=== PATIENT | female | born 1945 | race Caucasian/White ===

== ENCOUNTER → 2017-07-30 | Outpatient (CLI) | payer MEDICARE ==
--- NOTE | 2017-07-31 12:38 | RAD ---
DATE: 07/30/2017 EXAM: MAMMO TK SCREENING BILATERAL HISTORY: Routine screening COMPARISON: 07/18/2016 The breast parenchyma is primarily fatty replaced. Breast parenchyma level density A. FINDINGS: 2-D and 3-D tomosynthesis imaging was performed in CC and MLO projections. The breasts are predominantly fatty in nature with a small amount of residual fibroglandular tissue in the retroareolar regions. Several small oil cysts, some of which demonstrate rim-like calcification, are noted medially in the right breast. Several small smooth right breast nodules are unchanged. No suspicious breast densities have developed. Benign type calcifications are present. IMPRESSION: There is no mammographic evidence of malignancy in either breast. BI-RADS CATEGORY: 2 BENIGN FINDING(S) RECOMMENDED FOLLOW-UP: 12M 12 MONTH FOLLOW-UP PQRS compliance statement: Patient information was entered into a reminder system with a target due date for the next mammogram. Mammography is a sensitive method for finding small breast cancers, but it does not detect them all and is not a substitute for careful clinical examination. A negative mammogram does not negate a clinically suspicious finding and should not result in delay in biopsying a clinically suspicious abnormality. "Our facility is accredited by the [employer] Mammography [employer]."
== END | disposition home or self-care (01) ==
LOC: KCIC MAMMO 08:42
PROVIDERS: ATTEND Internal Medicine
DX: Z12.31 Encounter for screening mammogram for malignant neoplasm of breast (principal)
CPT/HCPCS: 77063; G0202; 77067

== ENCOUNTER → 2018-08-20 | Outpatient (CLI) | payer MEDICARE ==
--- NOTE | 2018-08-20 14:59 | KCIC ---
Bilateral digital screening mammograms with 3-D tomosynthesis: Reason for examination: Routine screening. Comparison is made to previous studies dated 07/30/2017 and 07/18/2016. Bilateral mammograms in CC and oblique projections were obtained with 2-D imaging and 3-D tomosynthesis imaging on a Siemens Inspiration unit and reviewed on the workstation. Interpretation was made with the benefit of CAD. The skin and nipples show no abnormalities. No abnormal axillary lymph nodes are seen. The breast parenchyma shows scattered fatty and fibroglandular density. (Breast density: Category B.) There continues to be some nodularity in the retroareolar 3:00 position of the left breast which is unchanged. There is some fat necrosis seen medially in the right breast. There are no new dominant masses, suspicious calcifications or architectural distortion. Benign calcifications are present. Impression: No evidence of malignancy. Recommend routine screening. BI-RAD Category 2: Benign. "Our facility is accredited by the [employer] Mammography [employer]." This patient's information has been entered into a reminder system for the patient to be notified with the results of her examination and a target date for the next mammogram. Electronically signed by: Eli Francis MD (08/20/2018 2:55 PM) [id number]
== END | disposition home or self-care (01) ==
LOC: KCIC MAMMO 10:44
PROVIDERS: ATTEND Internal Medicine
DX: Z12.31 Encounter for screening mammogram for malignant neoplasm of breast (principal); E11.9 Type 2 diabetes mellitus without complications
CPT/HCPCS: 77063; 77067

== ENCOUNTER → 2019-09-02 | Outpatient (CLI) | payer MEDICARE ==
--- NOTE | 2019-09-02 18:26 | KCIC ---
Bilateral digital screening mammograms with 3-D tomosynthesis: Reason for examination: Routine screening. Comparison is made to previous studies dated 08/20/2018 and 07/30/2017. Bilateral mammograms in CC and oblique projections were obtained with 2-D imaging and 3-D tomosynthesis imaging on a Siemens Inspiration unit and reviewed on the workstation. Interpretation was made with the benefit of CAD. The skin and nipples show no abnormalities. No abnormal axillary lymph nodes are seen. The breast parenchyma is heterogeneously dense. (Breast density: Category C.) There continues to be a small nodular parenchymal density at the 2:00 position anteriorly in the right breast which is stable. There are no new dominant masses, suspicious calcifications or architectural distortion. Benign calcifications are present. Impression: No evidence of malignancy. Recommend routine screening. Your patient's mammogram demonstrates that she has dense breast tissue (breast density category C or D), which could hide abnormalities, and if she has other risk factors for breast cancer that have been identified, she might benefit from supplemental screening tests that may be suggested by you as her ordering physician. Dense breast tissue, in and of itself, is a relatively common condition. Therefore, this information is not provided to cause undue concern, but rather to raise your awareness and to promote discussion with your patient regarding the presence of other risk factors, in addition to dense breast tissue. Your patient's mammography results will be sent to her. BI-RAD Category 2: Benign. "Our facility is accredited by the [employer] Mammography Program." This patient's information has been entered into a reminder system for the patient to be notified with the results of her examination and a target date for the next mammogram. Electronically signed by: Eli Francis MD (09/02/2019 6:23 PM) [id number]
== END | disposition home or self-care (01) ==
LOC: KCIC MAMMO 09:10
PROVIDERS: ATTEND Internal Medicine
DX: Z12.31 Encounter for screening mammogram for malignant neoplasm of breast (principal); N64.89 Other specified disorders of breast
CPT/HCPCS: 77063; 77067

== ENCOUNTER → 2020-02-03 | Outpatient (CLI) | payer MEDICARE, OTHER ==
--- NOTE | 2020-02-03 15:22 | KCIC ---
MRI Lumbar Spine without contrast History: Low back pain, recent back pain into the right leg, previous epidurals Technique: Multiplanar, multi sequential noncontrast MR imaging was performed of the lumbar spine. Comparison: None Findings: There is zblo-en-wrwwmjiq dextroscoliosis centered near L2-3 and mild levoscoliosis centered near L4-5. There is mild right lateral subluxation L2 relative L3, negligible right lateral subluxation L3 relative L4 and minimal left lateral subluxation L4 relative to L5. Other than multilevel Schmorl's nodes, vertebral body stature is maintained. There is minimal grade 1 anterior spondylolisthesis at L4-5 and L5-S1, minimal posterior subluxation of L2 relative L3. Conus terminates at L1-L2. There is variable fairly advanced degenerative disc disease at L2-3, L4-5 and L5-S1 and to lesser degree at L3-4 and L1-2, also of visualized inferior thoracic levels. There is L2-3 endplate edema likely reactive/degenerative in etiology. Not fully included, there is probable retroaortic left renal vein. There is a small T2 hyperintense lesion of the left kidney, statistically more likely a cyst. T12-L1: There is minimal disc osteophyte complex, superimposed more focal protrusion in the right lateral recess, possible this is partially calcified, measures about 3 to 4 mm AP with more focal indentation upon the ventral thecal sac in the right lateral recess, moderate right lateral recess stenosis. There is mild buckling of the ligamentum flavum. There is minimal narrowing of the anterior, inferior right neural foramen, left neural foramen adequate. L1-L2: There is minimal disc osteophyte complex, very shallow protrusion in the far left lateral recess. There is mild buckling of the ligamentum flavum and facet degenerative change. There is mild to moderate narrowing of the far left lateral recess. Neural foramina are overall adequate. L2-L3: There is broad posterior disc osteophyte complex. There is mild to moderate left and mild right buckling of the ligamentum flavum. There is rnlz-eo-pgutvvxn facet degenerative change. Combination of findings results in moderate to severe spinal stenosis, limited preserved subarachnoid space, variable lateral recess stenosis bilaterally. There is nesv-ur-xkmyddsp narrowing of the left neural foramen, also contacted undersurface proximal extraforaminal left L2 nerve root by disc osteophyte complex and protrusion. There is also moderate narrowing of the right neural foramen. L3-L4: There is moderate to severe facet degenerative degenerative change and buckling of the ligamentum flavum. There is minimal disc osteophyte complex and bulge. Combination of findings results in moderate to severe spinal stenosis with variable lateral recess stenosis bilaterally. Bulge contacts the undersurface proximal extraforaminal left L3 nerve root without displacement, minimal narrowing of the left neural foramen. There is wioj-ev-ksnkazan narrowing of the right neural foramen. L4-L5: There is fairly severe facet degenerative change greater on the right and moderate buckling of the ligamentum flavum. There is mild partial uncovering of the posterior aspect of the disc due to spondylolisthesis with superimposed disc osteophyte complex and bulge. There is severe right greater than left lateral recess stenosis with contact of the descending L5 nerve roots, moderate to severe narrowing of the central canal greater in the transverse dimension with limited preserved subarachnoid space. Left neural foramen is adequate. There is severe narrowing of the right neural foramen, impingement of the exiting right L4 nerve root in part by disc osteophyte complex and bulge. L5-S1: There is minimal disc osteophyte complex and shallow protrusion eccentric to the far left lateral recess. There is severe facet degenerative change greater on the left and mild buckling of the ligamentum flavum. Descending nerve roots are peripherally displaced in the thecal sac. There is severe left lateral recess stenosis with impingement descending left S1 nerve root. There is severe narrowing of the left neural foramen in part by disc osteophyte complex and protrusion with impingement of the exiting left L5 nerve root. There is znnx-cy-vxgdioxm narrowing of the more distal right neural foramen, also fairly significant impingement of the extraforaminal right L5 nerve root by disc osteophyte complex and likely shallow protrusion. Impression: 1. There is multilevel significant lateral recess stenosis as described such as on the left at L5-S1, right greater than left at L4-5, bilaterally at L3-4 and L2-3, to a lesser degree on the right at T12-L1. 2. There is multilevel fairly advanced lumbar degenerative disc disease, L3-4 least affected. There is multilevel mild abnormal alignment as stated including abnormal lateral alignment. There is multilevel lumbar facet degenerative change. There is mild S-shaped curvature of the lumbar spine. 3. There is multilevel lumbar neural foramina compromise, more significant neural foramina compromise such as on the left at L5-S1, on the right at L4-5 and L5-S1, to a somewhat lesser degree bilaterally at L2-3. There is multilevel contact of the extraforaminal nerve roots as stated.. Electronically signed by: Rian Mayo MD (02/03/2020 3:19 PM) [id number]
== END | disposition home or self-care (01) ==
LOC: KCIC MRI 13:06
PROVIDERS: ATTEND Internal Medicine
DX: M48.07 Spinal stenosis, lumbosacral region (principal); M51.27 Other intervertebral disc displacement, lumbosacral region; M51.36 Other intervertebral disc degeneration, lumbar region; M25.78 Osteophyte, vertebrae
CPT/HCPCS: 72148

== ENCOUNTER → 2020-09-05 | Outpatient (CLI) | payer MEDICARE ==
--- NOTE | 2020-09-05 17:53 | KCIC ---
Bilateral digital screening mammograms with 3-D tomosynthesis: Reason for examination: Routine screening. Comparison is made to previous studies dated back to 07/18/2016. Bilateral mammograms in CC and oblique projections were obtained with 2-D imaging and 3-D tomosynthesis imaging on a Siemens Inspiration unit and reviewed on the workstation. Interpretation was made with the benefit of CAD. The skin and nipples show no abnormalities. No abnormal axillary lymph nodes are seen. The breast parenchyma is predominantly fatty. (Breast density: Category A.) There are no dominant masses, suspicious calcifications or architectural distortion. Benign calcifications are present. Impression: No evidence of malignancy. Recommend routine screening. BI-RAD Category 2: Benign. "Our facility is accredited by the [employer] Mammography [employer]." This patient's information has been entered into a reminder system for the patient to be notified with the results of her examination and a target date for the next mammogram. Electronically signed by: Eli Francis MD (09/05/2020 5:50 PM) [id number]
== END ==
LOC: KCIC MAMMO 14:08
PROVIDERS: ATTEND Internal Medicine
DX: Z12.31 Encounter for screening mammogram for malignant neoplasm of breast (principal); N64.89 Other specified disorders of breast
CPT/HCPCS: 77063; 77067

== ENCOUNTER → 2021-02-27 | Outpatient (CLI) | payer MEDICARE ==
--- NOTE | 2021-02-27 14:00 | KCIC ---
EXAMINATION: US DPLX VENOUS EXTREMITY LOWER LT (LOWER EXTREMITY VENOUS ULTRASOUND) CLINICAL HISTORY: Left leg pain TECHNIQUE: Sonographic grayscale images obtained of the left lower extremity deep venous system with color flow Doppler, compression, and augmentation techniques as indicated. Images obtained and store d in a permanent archive. COMPARISON: None FINDINGS: No evidence of absent flow or incompressibility within the common femoral vein, femoral vein, or popl iteal vein. Visualized calf veins appear patent on limited evaluation. Moderate to large suprapatellar joint effusion incidentally noted which corresponds to the area of pa tient's symptoms. IMPRESSION: No evidence of left lower extremity DVT. Incidentally noted moderate to large suprapatellar joint effusion. Electronically signed by: Fidencio Sanchez DO (02/27/2021 1:58 PM) [id number]
== END ==
LOC: KCIC US 12:57
PROVIDERS: ATTEND Nurse Practitioner Family
DX: M25.462 Effusion, left knee (principal)
CPT/HCPCS: 93971

== ENCOUNTER → 2021-10-04 | Outpatient (CLI) | payer MEDICARE ==
--- NOTE | 2021-10-04 11:29 | KCIC ---
Bilateral digital screening mammograms with 3-D tomosynthesis: Reason for examination: Routine screening. Comparison is made to previous studies dated back to 07/18/2015. Bilateral mammograms in CC and oblique projections were obtained with 2-D imaging and 3-D tomosynthes is imaging on a Siemens Inspiration unit and reviewed on the workstation. Interpretation was made wit h the benefit of CAD. The skin and nipples show no abnormalities. No abnormal axillary lymph nodes are seen. The breast par enchyma is predominantly fatty. (Breast density: Category A.) There are no dominant masses, suspiciou s calcifications or architectural distortion. Benign calcifications are present. Impression: No evidence of malignancy. Recommend routine screening. BI-RAD Category 2: Benign. "Our facility is accredited by the [employer] Mammography [employer]." This patient's information has been entered into a reminder system for the patient to be notified wit h the results of her examination and a target date for the next mammogram. Electronically signed by: Eli Francis MD (10/04/2021 11:27 AM) [id number]
== END ==
LOC: KCIC MAMMO 10:06
PROVIDERS: ATTEND Internal Medicine
DX: Z12.31 Encounter for screening mammogram for malignant neoplasm of breast (principal)
CPT/HCPCS: 77063; 77067